=== PATIENT | male | born 1965 | race Caucasian/White ===

== ENCOUNTER 2020-08-30 21:32 | Emergency (ER) | payer BC ==
[~2020-08-30] VITALS: Ht 177.8 cm; Wt 75.0 kg
[2020-08-30 21:41] VITALS: Ht 177.8 cm; Wt 75.0 kg
[2020-08-30] MEDS ORDERED: FLOMAX0.4 MG PO (21:43)
[2020-08-30] MEDS ORDERED: BACTRIM 400-801 TAB PO (21:43)
[2020-08-30 22:22] LABS: BASOPHILS 0.1 % (0-2); EOSINOPHILS 0.6 % (0-7); HEMOGLOBIN 14.8 g/dL (13.5-17.5); LYMPHOCYTES 6.9 % (15-50); MCH 29.4 pg (26.0-34.0); MCHC 33.6 g/dL (31.0-37.0); MCV 87.5 fL (80.0-100.0); MEAN PLATELET VOLUME 7.9 fL (7.4-10.4); NEUTROPHILS 85.4 % (40-80); PLATELET COUNT 177 10x3/uL (130-400); RBC 5.03 10x6/uL (4.20-6.10); WBC 8.3 10x3/uL (4.8-10.8)
[2020-08-30 22:30] LABS: BILIRUBIN NEGATIVE (NEGATIVE); KETONE SMALL mg/dL (NEGATIVE); NITRITE NEGATIVE (NEGATIVE); UROBILINOGEN NORMAL mg/dL (< 2)
[2020-08-30 22:31] LABS: SQUAMOUS EPITHELIAL NONE SEEN HPF (0-4); WHITE CELLS - URINE 0-5 HPF (0-1)
[2020-08-30 22:31] LABS: ANION GAP 14.8 mmol/L (8-16); CALCIUM 9.2 mg/dL (8.5-10.1); CARBON DIOXIDE 23.1 mmol/L (21.0-32.0); CREATININE - SERUM 1.6 mg/dL (0.6-1.3); POTASSIUM - SERUM 3.9 mmol/L (3.5-5.1)
[2020-08-30 22:32] LABS: BACTERIA FEW HPF (NONE SEEN)
[2020-08-30 22:37] LABS: ALBUMIN 4.3 g/dL (3.4-5.0); BILIRUBIN - TOTAL 0.48 mg/dL (0.2-1.3); PROTEIN - SERUM 7.3 g/dL (6.4-8.2)
[2020-08-31] MEDS ORDERED: ZOFRAN ODT4 MG/UDTAB PO (07:04)
[2020-08-31] MEDS ORDERED: PERCOCET 5-3251 TAB PO (07:04)
[2020-08-31 07:17] VITALS: BP 110/81
== END 2020-08-31 07:17 | disposition home or self-care (01) ==
LOC: D.ER 21:32
PROVIDERS: Emergency Medicine
DX: N20.1 Calculus of ureter (principal); N28.9 Disorder of kidney and ureter, unspecified